=== PATIENT | female | born 1980 ===

== ENCOUNTER 2023-12-05 19:00 | Inpatient (IN) | payer BC ==
[~2023-12-05 19:00] MED LIST: Bupivacaine PF 0.5% 30 ML VIAL ONE
[2023-12-05] MEDS ORDERED: Penicillin G Potassium 5 MILL.UNITS in Sodium Chloride 0.9% 100 ML IVPB SCH (21:55)
[2023-12-05] MEDS ORDERED: Promethazine HCl 25 MG/ML VIAL IM PRN (21:55)
[2023-12-05] MEDS ORDERED: HYDROcodone/Acetaminophen 5/325 mg Tablet PO PRN ×2 (21:55)
[2023-12-05] MEDS ORDERED: fentaNYL 50 mcg/mL 1 mL Vial SLOW IVP PRN (21:55)
[2023-12-05] MEDS ORDERED: Ondansetron PF 4 MG/2 ML Vial IVP PRN (21:55)
[2023-12-05] MEDS ORDERED: hydrALAZINE 20 MG/ML VIAL SLOW IVP PRN (21:55)
[2023-12-05] MEDS ORDERED: Ibuprofen 800 MG TAB PO PRN (21:55)
[2023-12-05] MEDS ORDERED: Lidocaine 1% (PF) 30 ML VIAL SC PRN (21:55)
[2023-12-05] MEDS ORDERED: Oxytocin 30 units/NS 500 ML 500 ML IV SCH ×3 (21:55)
[2023-12-05 22:53] VITALS: BMI 34.9
[2023-12-05 23:33] LABS: Hematocrit 33.1 % (34.9-44.5); Hemoglobin 11.2 g/dL (12.0-15.5); Mean Corpuscular HGB CONC 33.8 g/dL (32.0-36.0); Mean Corpuscular Hemoglobin 30.9 pg (27.0-33.0); Mean Corpuscular Volume 91.4 fl (81.6-98.3); Platelet Count 218 10x3/uL (150-450); RBC Distribution Width 15.2 % (11.5-14.5); Red Blood Cell (RBC) Count 3.62 10x6/uL (3.90-5.03); White Blood Cell (WBC) Count 14.7 10x3/uL (3.5-10.5)
[2023-12-05] MEDS: Lactated Ringer's 1,000 ML IV SCH (23:37)
[2023-12-05] MEDS: Misoprostol 100 MCG TAB VAG SCH (23:44)
[2023-12-06 00:05] LABS: HBSAg Index 0.17 S/CO (0-0.99); Hep B Surf Ag - L&D Non-Reactive S/CO (NonReactive)
[2023-12-06 00:06] LABS: Syphilis Antibody Nonreactive (Nonreactive); Syphilis Antibody Index 0.07 S/CO (<1.00 Non-Reactive)
[2023-12-06] MEDS: Penicillin G 2.5 MILL.units 2.5 MILL.UNITS in Premix 1 BAG IVPB SCH ×4 (03:55→16:19)
[2023-12-06] MEDS: Lactated Ringer's 1,000 ML IV SCH ×2 (10:08→14:13)
[2023-12-06] MEDS: Misoprostol 100 MCG TAB VAG SCH ×3 (10:08→16:19)
[2023-12-06] MEDS ORDERED: fentaNYL/Ropivacaine Epidural 100 ML ONE (12:43)
[2023-12-06] MEDS ORDERED: Acetaminophen 325 MG TAB PO PRN (13:35)
[2023-12-06] MEDS ORDERED: ePHEDrine Sulfate 50 MG/10 ML VIAL SLOW IVP PRN (13:35)
[2023-12-06] MEDS ORDERED: Ondansetron PF 4 MG/2 ML Vial IVP PRN ×4 (13:35→22:05)
[2023-12-06] MEDS ORDERED: diphenhydrAMINE 50 MG/ML VIAL IVP PRN ×2 (13:35→18:58)
[2023-12-06] MEDS ORDERED: Moisturizing Cream (Eucerin) 113 GM JAR TOP PRN ×2 (13:35→18:58)
[2023-12-06] MEDS ORDERED: Naloxone HCl 0.4 mg/ml Vial IVP PRN ×4 (13:35→18:58)
[2023-12-06] MEDS ORDERED: Promethazine HCl 25 MG/ML VIAL IM PRN ×2 (13:35→18:58)
[2023-12-06] MEDS ORDERED: Lactated Ringer's 500 ML IV PRN (13:35)
[2023-12-06] MEDS ORDERED: fentaNYL 2 mcg/Ropivacaine 0.2% Epidural 100 ML CADD EPIDURAL SCH (13:45)
[2023-12-06] MEDS ORDERED: Communication Order-Pharmacy FS SCH ×2 (13:45→19:00)
[2023-12-06] MEDS ORDERED: CEFAZOLIN 2 GM VIAL ONE (17:34)
[2023-12-06] MEDS ORDERED: Azithromycin 500 MG VIAL ONE (17:35)
[2023-12-06] MEDS ORDERED: Morphine PF 10 MG/10 ML VIAL ONE (17:49)
[2023-12-06] MEDS ORDERED: fentaNYL 50 mcg/mL 1 mL Vial ONE (17:49)
[2023-12-06] MEDS ORDERED: Dexamethasone 4 mg/ml Vial ONE (18:15)
[2023-12-06] MEDS ORDERED: Ondansetron PF 4 MG/2 ML Vial ONE (18:15)
[2023-12-06] MEDS ORDERED: Oxytocin 10 UNITS/ML VIAL ONE (18:35)
[2023-12-06] MEDS ORDERED: Promethazine HCl 25 MG SUPP PR PRN (18:58)
[2023-12-06] MEDS ORDERED: fentaNYL 50 mcg/mL 1 mL Vial SLOW IVP PRN (18:58)
[2023-12-06] MEDS ORDERED: Naloxone HCl 0.4 mg/ml Vial IV PRN (18:58)
[2023-12-06] MEDS ORDERED: HYDROmorphone 0.5 MG/0.5 ML SYRINGE SLOW IVP PRN (18:58)
[2023-12-06] MEDS ORDERED: Meperidine HCl/PF 25 MG (1 mL) VIAL SLOW IVP PRN (18:58)
[2023-12-06] MEDS ORDERED: Ketorolac Tromethamine 30 MG (1 mL) VIAL IVP SCH (19:00)
[2023-12-06] MEDS ORDERED: Bisacodyl 10 MG SUPP PR PRN (22:05)
[2023-12-06] MEDS ORDERED: Lanolin Ointment 7 GM TUBE TOP PRN (22:05)
[2023-12-06] MEDS ORDERED: Boostrix 0.5 ML (Tdap) VIAL (>/=7 yrs of age) IM ONE (22:05)
[2023-12-06] MEDS ORDERED: diphenhydrAMINE 25 MG CAP PO PRN (22:05)
[2023-12-06] MEDS ORDERED: Oxytocin 30 units/NS 500 ML 500 ML IV SCH (22:05)
[2023-12-06] MEDS ORDERED: hydrALAZINE 20 MG/ML VIAL SLOW IVP PRN (22:05)
[2023-12-06] MEDS ORDERED: Ferrous Sulfate 325 MG TAB PO SCH (22:15)
[2023-12-06] MEDS ORDERED: Docusate 100 MG CAP PO SCH (22:15)
[2023-12-06] MEDS: Ketorolac Tromethamine 30 MG (1 mL) VIAL IVP PRN (22:50)
[2023-12-07 03:33] LABS: Hematocrit 31.6 % (34.9-44.5); Hemoglobin 10.7 g/dL (12.0-15.5); Mean Corpuscular HGB CONC 33.9 g/dL (32.0-36.0); Mean Corpuscular Hemoglobin 31.5 pg (27.0-33.0); Mean Corpuscular Volume 92.9 fl (81.6-98.3); Mean Platelet Volume 12.3 fl (7.4-10.4); Platelet Count 184 10x3/uL (150-450); RBC Distribution Width 15.2 % (11.5-14.5); White Blood Cell (WBC) Count 20.8 10x3/uL (3.5-10.5)
[2023-12-07] MEDS: Ketorolac Tromethamine 30 MG (1 mL) VIAL IVP PRN ×2 (04:59→14:06)
[2023-12-07] MEDS ORDERED: HYDROcodone/Acetaminophen 5/325 mg Tablet PO PRN (07:00)
[2023-12-07] MEDS: Ferrous Sulfate 325 MG TAB PO SCH ×2 (07:25→19:40)
[2023-12-07] MEDS: Lactated Ringer's 1,000 ML IV SCH (07:26)
[2023-12-07] MEDS: Penicillin G 2.5 MILL.units 2.5 MILL.UNITS in Premix 1 BAG IVPB SCH (07:26)
[2023-12-07] MEDS: Misoprostol 100 MCG TAB VAG SCH (07:26)
[2023-12-07] MEDS: HYDROcodone/Acetaminophen 5/325 mg Tablet PO PRN ×3 (08:38→19:53)
[2023-12-07] MEDS: Prenatal Vitamin 1 TAB PO SCH (08:38)
[2023-12-07] MEDS: Docusate 100 MG CAP PO SCH ×2 (08:38→21:25)
[2023-12-07] MEDS: Simethicone Chewable 80 MG TAB PO PRN ×2 (08:38→14:05)
[2023-12-07] MEDS: Ibuprofen 800 MG TAB PO SCH (21:24)
[2023-12-08] MEDS ORDERED: Ibuprofen 800 MG TAB PO PRN (01:00)
[2023-12-08] MEDS: Ibuprofen 800 MG TAB PO SCH (06:10)
[2023-12-08] MEDS: Ferrous Sulfate 325 MG TAB PO SCH (07:08)
[2023-12-08] MEDS: Prenatal Vitamin 1 TAB PO SCH (08:13)
[2023-12-08] MEDS: Docusate 100 MG CAP PO SCH (08:13)
[2023-12-08] MEDS: HYDROcodone/Acetaminophen 5/325 mg Tablet PO PRN (08:22)
[2023-12-08 09:36] VITALS: BP 126/76; TEMP 98.4
== END 2023-12-08 14:25 | disposition home or self-care (01) | DRG 788 ==
LOC: CSHLD 21:48 → CSHPP 12-06 21:35
PROVIDERS: ADMIT Obstetrics & Gynecology; ATTEND Obstetrics & Gynecology
PROC: 10D00Z1 Extraction of Products of Conception, Low, Open Approach (ICD-10-PCS; principal; 2023-12-06)
PROC: 10H07YZ Insertion of Other Device into Products of Conception, Via Natural or Artificial Opening (ICD-10-PCS; 2023-12-06)
DX: O40.3XX0 Polyhydramnios, third trimester, not applicable or unspecified (principal); O99.824 Streptococcus B carrier state complicating childbirth; O99.334 Smoking (tobacco) complicating childbirth; F17.210 Nicotine dependence, cigarettes, uncomplicated; O62.9 Abnormality of forces of labor, unspecified; Z3A.39 39 weeks gestation of pregnancy; Z37.0 Single live birth; D50.8 Other iron deficiency anemias; Z71.6 Tobacco abuse counseling; O90.81 Anemia of the puerperium; O34.03 Maternal care for unspecified congenital malformation of uterus, third trimester; Q51.3 Bicornate uterus; O32.8XX0 Maternal care for other malpresentation of fetus, not applicable or unspecified
CPT/HCPCS: 36415; 51702; 85027; 86780; 86850; 86900; 86901; 87340; J0456; J1100; J1885; J2274; J2405; J2540; J2590; J3010; J3490; J7120; S0020